=== PATIENT | male | born 1955 | race Caucasian/White ===

== ENCOUNTER → 2017-11-07 | Outpatient (CLI) | payer OTHER | END | disposition home or self-care (01) | LOC: CFH 14:54 | PROVIDERS: ATTEND Physician Assistant Medical | DX: I10 Essential (primary) hypertension (principal) | CPT/HCPCS: 93306 ==

== ENCOUNTER → 2020-11-28 | Outpatient (CLI) | payer MEDICARE | END | disposition home or self-care (01) | LOC: CVU 15:44 | PROVIDERS: ATTEND Internal Medicine Cardiovascular Disease | DX: I08.8 Other rheumatic multiple valve diseases (principal); I48.0 Paroxysmal atrial fibrillation; I10 Essential (primary) hypertension; E78.00 Pure hypercholesterolemia, unspecified | CPT/HCPCS: 93306; 93356 ==

== ENCOUNTER 2021-01-06 08:48 | Outpatient (CLI) | payer MEDICARE ==
[2021-01-06] MEDS ORDERED: OMNIPAQUE 350 MG/ML, 150 ML BOTTLE ONE (10:05)
[2021-01-07] MEDS ORDERED: FLEC100T PO (06:42)
[2021-01-07] MEDS ORDERED: LISI-170 PO (06:42)
[2021-01-07] MEDS ORDERED: ATOR20TA37 PO (06:45)
[2021-01-07] MEDS ORDERED: HYDR-3241 PO (06:45)
[2021-01-07] MEDS ORDERED: ACYC-40 PO (06:45)
[2021-01-07] MEDS ORDERED: TEMA15CA6 PO (06:45)
[2021-01-07] MEDS ORDERED: TRAZ-175 PO (06:45)
[2021-01-07] MEDS ORDERED: LISI-167 PO (06:45)
[2021-01-07] MEDS ORDERED: TESTOSTERONE TP (06:46)
== END 2021-01-06 23:59 | disposition home or self-care (01) ==
LOC: CFH 08:48 → RAD 23:59
PROVIDERS: ATTEND Internal Medicine Cardiovascular Disease
DX: I10 Essential (primary) hypertension (principal); E78.5 Hyperlipidemia, unspecified; I48.0 Paroxysmal atrial fibrillation; I48.92 Unspecified atrial flutter; Z20.822 Contact with and (suspected) exposure to COVID-19
CPT/HCPCS: 71046; 75572; 82565; Q9967; U0003; U0005

== ENCOUNTER 2021-01-07 06:11 | Observation (INO) | payer MEDICARE ==
[~2021-01-07] VITALS: Ht 177.8 cm; Wt 89.1 kg
[2021-01-07] MEDS ORDERED: LISI-170 PO (06:42)
[2021-01-07] MEDS ORDERED: FLEC100T PO (06:42)
[2021-01-07] MEDS ORDERED: TRAZ-175 PO (06:45)
[2021-01-07] MEDS ORDERED: ATOR20TA37 PO (06:45)
[2021-01-07] MEDS ORDERED: HYDR-3241 PO (06:45)
[2021-01-07] MEDS ORDERED: TEMA15CA6 PO (06:45)
[2021-01-07] MEDS ORDERED: LISI-167 PO (06:45)
[2021-01-07] MEDS ORDERED: ACYC-40 PO (06:45)
[2021-01-07] MEDS ORDERED: TESTOSTERONE TP (06:46)
[2021-01-07 06:52] VITALS: BP 128/85
[2021-01-07] MEDS ORDERED: SODIUM CHLORIDE 0.9% 1,000 ML IV SCH (07:00)
[2021-01-07 07:20] LABS: BASOPHILS % (AUTO) 1 % (0-1); EOSINOPHILS % (AUTO) 2 % (1-7); LYMPHOCYTES % (AUTO) 22 % (22-44); MEAN CORPUSCULAR HEMOGLOBIN 33.6 pg (27.5-34.5); MEAN CORPUSCULAR HGB CONC 34.4 g/dL (33.2-36.2); MONOCYTES % (AUTO) 10 % (2-9); NEUTROPHILS % (AUTO) 65 % (42-75); PLATELET COUNT 188 x10^3/uL (130-400); RED BLOOD COUNT 5.03 x10^6/uL (4.38-5.82); RED CELL DISTRIBUTION WIDTH 12.8 % (9.4-14.8)
[2021-01-07 07:26] LABS: INTERNATIONAL NORMALIZED RATIO 1.07 (0.93-1.1); PROTHROMBIN TIME 11.4 Seconds (9.6-11.5)
[2021-01-07 07:28] LABS: ALANINE AMINOTRANSFERASE 36 U/L (12-78); ALBUMIN 3.6 g/dL (3.4-5.0); ANION GAP 7 mmol/L (5-15); CALCIUM 8.9 mg/dL (8.5-10.1); CHLORIDE 107 mmol/L (98-107); CREATININE 0.75 mg/dL (0.7-1.3)
[2021-01-07 07:30] LABS: ALKALINE PHOSPHATASE 54 U/L (45-117); BILIRUBIN,TOTAL 0.7 mg/dL (0.2-1.0); TOTAL PROTEIN 6.9 g/dL (6.4-8.2)
[2021-01-07] MEDS ORDERED: HEPARIN 1,000 UNITS/ML, 10ML ONE ×2 (07:35)
[2021-01-07] MEDS ORDERED: LIDOCAINE 2%, 20ML ONE (07:35)
[2021-01-07] MEDS ORDERED: FENTANYL PF 100 MCG/2ML ONE (07:35)
[2021-01-07] MEDS ORDERED: LIDOCAINE-MPF 2% ,5ML ONE (07:35)
[2021-01-07] MEDS ORDERED: MIDAZOLAM 1 MG/ML, 2ML ONE (07:35)
[2021-01-07] MEDS ORDERED: ROCURONIUM 10MG/ML,5ML ONE ×3 (07:35→09:56)
[2021-01-07] MEDS ORDERED: ONDANSETRON 2MG/ML, 2ML ONE (08:01)
[2021-01-07] MEDS ORDERED: PROPOFOL 10 MG/ML, 20ML ONE (08:01)
[2021-01-07] MEDS ORDERED: DEXAMETHASONE 4 MG/ML, 1ML ONE (08:01)
[2021-01-07] MEDS ORDERED: SUCCINYLCHOLINE 20 MG/ML, 10ML ONE (08:01)
[2021-01-07] MEDS ORDERED: SUGAMMADEX 200 MG/2 ML IVPush ONE (09:01)
[2021-01-07] MEDS ORDERED: APIXABAN 5 MG TABLET ONE (10:23)
[2021-01-07] MEDS ORDERED: ZOLPIDEM 5MG TABLET PO PRN (10:30)
[2021-01-07] MEDS ORDERED: ONDANSETRON 2MG/ML, 2ML IVPush PRN ×2 (10:30→11:00)
[2021-01-07] MEDS: APIXABAN 5 MG TABLET PO SCH ×2 (10:30→20:12)
[2021-01-07] MEDS ORDERED: ACETAMINOPHEN 325 MG TABLET PO PRN ×2 (10:30→11:00)
[2021-01-07] MEDS ORDERED: HYDROcodone/APAP 7.5-325MG/15ML UDC ONE (10:51)
[2021-01-07] MEDS ORDERED: FENTANYL PF 100 MCG/2ML IV PRN (11:00)
[2021-01-07] MEDS ORDERED: PROMETHAZINE 25 MG/ML, 1ML IVPush PRN (11:00)
[2021-01-07] MEDS ORDERED: hydrALAzine 20 MG/ML, 1ML IV PRN (11:00)
[2021-01-07] MEDS ORDERED: OXYcodone 5 MG/5 ML ORAL.SOL UDC PO PRN (11:00)
[2021-01-07] MEDS ORDERED: EPHEDRINE 50 MG/ML, 1ML IVPush PRN (11:00)
[2021-01-07] MEDS ORDERED: HYDROmorphone 1 MG/ML, 1ML INJ IVPush PRN (11:00)
[2021-01-07] MEDS ORDERED: LABETALOL 5MG/ML, 20ML IV PRN (11:00)
[2021-01-07 16:54] VITALS: BP 123/77
[2021-01-07 18:50] VITALS: BP 153/99
[2021-01-07] MEDS: COLCHICINE 0.6 MG CAPSULE PO SCH (20:09)
[2021-01-07] MEDS: FLECAINIDE 100MG TABLET PO SCH (20:13)
[2021-01-07] MEDS ORDERED: LISINOPRIL 10 MG TABLET PO SCH (21:00)
[2021-01-07] MEDS ORDERED: ATORVASTATIN 20 MG TABLET PO SCH (21:00)
[2021-01-07] MEDS ORDERED: TEMAZEPAM 15 MG CAPSULE PO SCH (21:00)
[2021-01-07] MEDS ORDERED: TRAZODONE 100MG TABLET PO SCH (21:00)
[2021-01-08 01:18] VITALS: BP 148/90
[2021-01-08 07:15] VITALS: BP 120/76
[2021-01-08] MEDS: COLCHICINE 0.6 MG CAPSULE PO SCH (08:08)
[2021-01-08] MEDS: APIXABAN 5 MG TABLET PO SCH (08:08)
[2021-01-08] MEDS: FLECAINIDE 100MG TABLET PO SCH (08:08)
[2021-01-08] MEDS ORDERED: LISINOPRIL 20 MG TABLET PO SCH (09:00)
[2021-01-08] MEDS ORDERED: COLC0.6C3 PO (09:20)
[2021-01-08] MEDS ORDERED: APIX5TAB PO (09:20)
[2021-01-08] MEDS ORDERED: ACET325T26 PO (09:20)
== END 2021-01-08 11:19 | disposition home or self-care (01) ==
LOC: CACL 06:11 → 5SO 10:24
PROVIDERS: ADMIT Internal Medicine Cardiovascular Disease; ATTEND Internal Medicine Cardiovascular Disease
DX: I48.0 Paroxysmal atrial fibrillation (principal); I48.92 Unspecified atrial flutter; I31.9 Disease of pericardium, unspecified; D68.69 Other thrombophilia; I10 Essential (primary) hypertension; E78.5 Hyperlipidemia, unspecified; F12.10 Cannabis abuse, uncomplicated; Z79.899 Other long term (current) drug therapy
CPT/HCPCS: 36415; 80053; 85025; 85347; 85610; 93005; 93306; 93312; 93321; 93325; 93613; 93656; 93662; C1730; C1732; C1759; C1766; C1769; C1893; C1894; G0378; J0330; J1100; J1644; J2250; J2405; J2704; J3010; J3490